=== PATIENT | female | born 1950 | race Caucasian/White ===

== ENCOUNTER 2016-05-31 14:54 | Outpatient (CLI) | payer MEDICARE ==
--- NOTE | 2016-05-31 17:27 | RAD ---
CHEST TWO VIEWS 05/31/16 Comparison is made with a 09/13/15 portable film. The heart seems a bit larger today when before. Additionally, the vessels are slightly prominent, th erefore, I suspect a mild degree of congestion. No large effusions are present. There is some slight blunting of the right costophrenic angle, however. The cardiac pacer remains in place. IMPRESSION: Cardiomegaly with mild increase in heart size since last year. Suspicion of mild congestive change. POS: HOME
== END 2016-05-31 14:55 | disposition home or self-care (01) ==
LOC: BURRAD 14:54
PROVIDERS: ATTEND Physician Assistant
DX: I28.9 Disease of pulmonary vessels, unspecified (principal); I51.7 Cardiomegaly
CPT/HCPCS: 36415; 71020; 80053; 84443; 85025

== ENCOUNTER 2016-05-31 16:27 | Outpatient (CLI) | payer MEDICARE ==
[2016-05-31 16:44] LABS: #Basophils 0.1 thou/uL (0.0-0.2); #Eosinphils 0.4 thou/uL (0.0-0.7); #Lymphocytes 0.8 thou/uL (1.20-3.40); #Monocytes 0.5 thou/uL (0.11-0.59); %Basophils 0.9 % (0.0-1.0); %Eosinophils 5.4 % (0.0-10.0); %Monocytes 6.7 % (0.0-10.0); Hemoglobin 12.7 g/dL (12.0-16.0); Mean Corpuscular HGB CONC 31.6 g/dL (32.0-36.0); Mean Corpuscular Hemoglobin 29.5 pg (27.0-31.0); Mean Corpuscular Volume 93.2 fl (81.0-99.0); Mean Platelet Volume 7.4 fL (7.4-10.4); Platelet Count 192 thou/uL (130-400); RBC Distribution Width 15.2 % (11.5-14.5); Red Blood Cell (RBC) Count 4.32 mill/uL (4.20-5.40); White Blood Cell (WBC) Count 6.7 thou/uL (4.8-10.8)
[2016-05-31 17:01] LABS: ALT (SGPT) 19 U/L (0-55); AST (SGOT) 24 U/L (5-34); Albumin 3.4 g/dL (3.4-4.8); Alkaline Phosphatase 71 U/L (40-150); Anion Gap 15 mmol/L (10-20); BUN (Urea Nitrogen) 24 mg/dL (9.8-20.1); Calc. Creatinine Clearance 0 mL/min (70-130); Calcium 8.8 mg/dL (7.8-10.44); Carbon Dioxide 23 mmol/L (23-31); Chloride 103 mmol/L (98-107); Estimated GFR-MDRD 68; Globulin 2.4 g/dL (2.4-3.5); Glucose 64 mg/dL (80-115); Protein, Total 5.8 g/dL (5.8-8.1); Sodium 137 mmol/L (136-145)
== END 2016-05-31 16:28 | disposition home or self-care (01) ==
LOC: HPCALD 16:27
PROVIDERS: ATTEND Physician Assistant
DX: L03.116 Cellulitis of left lower limb (principal)
CPT/HCPCS: 36415; 80053; 84443; 85025

== ENCOUNTER 2016-06-05 12:44 | Emergency (ER) | payer MEDICARE | END 2016-06-05 13:39 | disposition home or self-care (01) | LOC: BURERS 12:44 | DX: L03.116 Cellulitis of left lower limb (principal); E11.9 Type 2 diabetes mellitus without complications; I11.0 Hypertensive heart disease with heart failure; I50.9 Heart failure, unspecified; J44.9 Chronic obstructive pulmonary disease, unspecified; Z79.01 Long term (current) use of anticoagulants; Z79.84 Long term (current) use of oral hypoglycemic drugs; Z79.899 Other long term (current) drug therapy | CPT/HCPCS: 99283 ==

== ENCOUNTER 2016-07-04 20:23 | Emergency (ER) | payer MEDICARE, MEDICAID ==
[2016-07-04] MEDS ORDERED: Nitroglycerin 0.4 MG TAB (25 Tab Bottle) ONE ×2 (21:06→21:45)
[2016-07-04 21:28] LABS: #Lymphocytes 0.7 thou/uL (1.20-3.40); #Monocytes 0.7 thou/uL (0.11-0.59); #Neutrophils 10.9 thou/uL (1.40-6.50); %Basophils 0.4 % (0.0-1.0); %Lymphocytes 5.4 % (21.0-51.0); %Monocytes 5.5 % (0.0-10.0); %Neutrophils 88.8 % (42.0-75.0); Hemoglobin 12.9 g/dL (12.0-16.0); Mean Corpuscular Volume 90.6 fl (81.0-99.0); Mean Platelet Volume 6.7 fL (7.4-10.4); Platelet Count 201 thou/uL (130-400); RBC Distribution Width 16.8 % (11.5-14.5); Red Blood Cell (RBC) Count 4.44 mill/uL (4.20-5.40); White Blood Cell (WBC) Count 12.3 thou/uL (4.8-10.8)
[2016-07-04 21:36] LABS: INR-International Normal Ratio 3.6; Prothrombin Time 37.6 SEC (12.0-14.7)
[2016-07-04 21:37] LABS: PTT 65.8 SEC (22.9-36.1)
[2016-07-04 21:38] LABS: ALT (SGPT) 9 U/L (0-55); AST (SGOT) 14 U/L (5-34); Albumin 3.3 g/dL (3.4-4.8); Alkaline Phosphatase 69 U/L (40-150); Anion Gap 15 mmol/L (10-20); BUN (Urea Nitrogen) 27 mg/dL (9.8-20.1); Bilirubin, Total 1.4 mg/dL (0.2-1.2); CK (CPK) 29 U/L (29-168); Calc. Creatinine Clearance 0 mL/min (70-130); Calcium 9.1 mg/dL (7.8-10.44); Carbon Dioxide 26 mmol/L (23-31); Chloride 100 mmol/L (98-107); Estimated GFR-MDRD 63; Globulin 2.9 g/dL (2.4-3.5); Glucose 151 mg/dL (80-115); Lipase 30 U/L (8-78); Potassium 4.3 mmol/L (3.5-5.1); Protein, Total 6.2 g/dL (5.8-8.1); Sodium 137 mmol/L (136-145)
[2016-07-04 21:41] LABS: CKMB 0.8 ng/mL (0-6.6); Troponin I 0.014 ng/mL (< 0.028)
--- NOTE | 2016-07-04 22:08 | RAD ---
PORTABLE CHEST: Date: 07-04-16 Technique: An AP portable film at 2051 is compared with a 05-31-16 study. FINDINGS: Moderate cardiomegaly is about the same as before. There might be some slight congestion of upper lo be vessels, but zachary pulmonary edema is not appreciated. No focal infiltrates or large effusions we re seen. The cardiac pacer remains in place. IMPRESSION: Moderate cardiomegaly. Questionable slight vascular congestion. POS: HOME
[2016-07-04] MEDS ORDERED: Pantoprazole 40 MG VIAL ONE (22:45)
== END 2016-07-04 23:15 | disposition short-term general hospital (02) ==
LOC: BURERS 20:23
DX: J44.9 Chronic obstructive pulmonary disease, unspecified (principal); I25.10 Atherosclerotic heart disease of native coronary artery without angina pectoris; I11.0 Hypertensive heart disease with heart failure; I50.9 Heart failure, unspecified; E11.9 Type 2 diabetes mellitus without complications; K74.60 Unspecified cirrhosis of liver; Z79.4 Long term (current) use of insulin; Z79.899 Other long term (current) drug therapy
CPT/HCPCS: 36415; 71010; 80053; 82550; 82553; 83690; 83880; 84484; 85025; 85610; 85730; 93005; 94760; 96374; 96375; C9113; J2270